=== PATIENT | male | born 1965 | race Caucasian/White ===

== ENCOUNTER 2022-12-09 10:35 | Outpatient (CLI) | payer OTHER, SELFPAY ==
[2022-12-09 13:19] LABS: Anion Gap 10 mmol/L (8-16); Blood Urea Nitrogen 18 mg/dL (9-20); Carbon Dioxide 29 mmol/L (22-30); Chloride 96 mmol/L (98-107); Estimated Glomerular Filt Rate > 60; Glucose 201 mg/dL (65-110); Potassium 4.6 mmol/L (3.4-5.0); Sodium 135 mmol/L (137-145)
[2022-12-09 17:13] LABS: Hemoglobin A1C 8.6 % (<5.7)
== END 2022-12-09 10:36 | disposition home or self-care (01) ==
LOC: ANHGOSHLAB 10:37
PROVIDERS: PCP Emergency Medicine; Visit Provider Nurse Practitioner
DX: R94.4 Abnormal results of kidney function studies (principal); E11.65 Type 2 diabetes mellitus with hyperglycemia
CPT/HCPCS: 36415; 80048; 83036

== ENCOUNTER 2023-03-14 08:48 | Day surgery (SDC) | payer OTHER, SELFPAY ==
[2022-12-01 15:07] VITALS: BMI 26.7
[2023-02-28 14:41] VITALS: BMI 25.0
--- NOTE | 2023-03-11 14:06 | WPDANESEPPF ---
Anes - Initial Pre Proc Eval Procedure: Operation Date: 03/14/23 11:30 Proposed Procedures p Screening Colonoscopy - Jose Miguel Carl MD Date/Time: 03/11/23 14:06 Surgeon: Jose Miguel Carl MD Pre Op Diagnosis: Neoplasm Screening Patient Data Age: 57 Gender: M Height: 1.91 m Weight: 91 kg Allergies Allergy/AdvReac Type Severity Reaction Status Date / Time Penicillins Allergy Unknown Hives Verified 03/14/23 10:07 Home Medications Medication Instructions Recorded Confirmed Type flash glucose scanning reader #1 ea 08/08/20 10/04/22 Rx (FreeStyle Sarah 14 Day Clarence) E2/E3/Progesterone/Testosterone 1 applic topical DAILY #1 tube 03/22/22 03/14/23 History 1.25/60MG/1MG/GM Topical Cream 1 tube cream cinnamon bark 500 mg capsule 500 mg PO DAILY 03/22/22 03/14/23 History (Cinnamon) milk thistle 150 mg capsule 150 mg PO DAILY 03/22/22 03/14/23 History flash glucose scanning reader #1 ea 10/14/22 Rx (FreeStyle Sarah 2 Clarence) flash glucose sensor (FreeStyle #1 ea 10/14/22 Rx Sarah 2 Sensor kit) ipratropium bromide 21 mcg (0.03 2 spray intranasal TID #30 mL 11/19/22 03/14/23 Rx %) nasal spray fluticasone propionate 50 1 spray intranasal DAILY 02/28/23 03/14/23 History mcg/actuation nasal spray,suspension (Flonase Allergy Relief) lisinopril 20 1 tablet PO DAILY 02/28/23 03/14/23 History mg-hydrochlorothiazide 12.5 mg tablet metformin 500 mg tablet,extended 1,000 mg PO BID #180 tabs 03/14/23 Rx release 24 hr Patient hx anesthesia problems: none Family hx anesthesia problems: none Results Review: All pre-operative results and documents have been reviewed as part of the pre-operative evaluation. [facility] Past Medical History Medical History (Updated 03/14/23 @ 11:02 by David Montoya DO) Hypertension associated with diabetes Type 2 diabetes mellitus with hyperglycemia, without long-term current use of insulin Family History Family History Father Hypertension Family history of congestive heart failure Social History Social History (Updated 03/14/23 @ 11:03 by David Montoya DO) Smoking status: Never smoker Alcohol intake: current Drinks per week: 5 Alcohol use details: 5 drinks 5 days/week Substance use: never Substance use type: does not use Lack of Transportation: No Lack of Food: Never True Current Housing: I Have Housing Concerned About Future Housing: No Difficulty Paying Gas/Electric Bills: No Difficulty Paying for Meds: No Currently Unemployed: No Education: Master's Degree or Higher Difficulty w/ Childcare or Family Care: No Living arrangements: with family Spiritual care concerns: No Anes - Eval Final PreProcedure Day of Procedure 03/11/23 14:06 Patient weight: overweight Heart: regular rate and rhythm Lungs: clear to auscultation Airway: Mallampati scale class II Neurological: alert and oriented Last oral intake: >/= 8 hours ASA classification: III Emergent: no Anesthetic plan: proceed Anesthesia type and monitoring: general GIVS and standard monitoring Results Review: All pre-operative results and documents have been reviewed as part of the pre-operative evaluation. Informed Consent: The patient's anesthetic plan and its attendant risks and benefits were discussed with the patient/family/POA. Questions were solicited and answers provided to the satisfaction of the patient/family/POA.
[2023-03-14 10:13] VITALS: BP 173/99; PULSE 82; RESP 16; TEMP 36.6; O2SAT 16; BMI 25.9
[2023-03-14 10:25] LABS: Glucose Point of Care 170 mg/dl (65-105)
[2023-03-14] MEDS: LACTATED RINGERS 1,000 ML 150 ML IV CONT (10:27)
--- NOTE | 2023-03-14 10:33 | PM.HPGS ---
History of Present Illness History of Present Illness Consent: Risks, benefits, and alternatives have been discussed and questions answered. Patient agrees to proceed with procedure. Chief complaint: Neoplasm Screening Narrative: Nelson Del Rio is a 57 year old male Presents for screening colonoscopy. Patient's current weight appetite and bowel movements are normal. Patient denies abdominal pain. He has had no bleeding. Family history noncontributory. Review of Systems Review of Systems: Review of systems noncontributory. [facility] Past Medical History Medical History (Updated 03/11/23 @ 14:07 by David Montoya DO) Hypertension associated with diabetes Sleep apnea in adult Supraventricular tachycardia Type 2 diabetes mellitus with hyperglycemia, without long-term current use of insulin Family History Family History Father Hypertension Family history of congestive heart failure Social History Social History (Updated 10/04/22 @ 10:32 by Rachelle Phelan MA) Smoking status: Never smoker Alcohol intake: current Drinks per week: 5 Substance use: never Substance use type: does not use Lack of Transportation: No Lack of Food: Never True Current Housing: I Have Housing Concerned About Future Housing: No Difficulty Paying Gas/Electric Bills: No Difficulty Paying for Meds: No Currently Unemployed: No Education: Master's Degree or Higher Difficulty w/ Childcare or Family Care: No Living arrangements: with family Spiritual care concerns: No Meds Home Medications and Allergies Home Medications Medication Instructions Recorded Confirmed Type flash glucose scanning reader #1 ea 08/08/20 10/04/22 Rx (FreeStyle Sarah 14 Day Baldwin) E2/E3/Progesterone/Testosterone 1 applic topical DAILY #1 tube 03/22/22 03/14/23 History 1.25/60MG/1MG/GM Topical Cream 1 tube cream cinnamon bark 500 mg capsule 500 mg PO DAILY 03/22/22 03/14/23 History (Cinnamon) milk thistle 150 mg capsule 150 mg PO DAILY 03/22/22 03/14/23 History flash glucose scanning reader #1 ea 10/14/22 Rx (FreeStyle Sarah 2 Baldwin) flash glucose sensor (FreeStyle #1 ea 10/14/22 Rx Sarah 2 Sensor kit) ipratropium bromide 21 mcg (0.03 2 spray intranasal TID #30 mL 11/19/22 03/14/23 Rx %) nasal spray metformin 500 mg tablet,extended 1,000 mg PO BID #180 tabs 02/07/23 03/14/23 Rx release 24 hr fluticasone propionate 50 1 spray intranasal DAILY 02/28/23 03/14/23 History mcg/actuation nasal spray,suspension (Flonase Allergy Relief) lisinopril 20 1 tablet PO DAILY 02/28/23 03/14/23 History mg-hydrochlorothiazide 12.5 mg tablet Allergies Allergy/AdvReac Type Severity Reaction Status Date / Time Penicillins Allergy Unknown Hives Verified 03/14/23 10:07 Vital Signs Vital Signs - 24 hr 03/14/23 10:13 Temperature 97.8 F Pulse Rate 82 Respiratory Rate 16 Blood Pressure 173/99 H Pulse Oximetry 16 L Oxygen Delivery Room Air Exam Narrative: Physical exam reveals patient to be alert. Vital signs stable. HEENT exam is unremarkable. Patient is anicteric. Lungs are clear to auscultation and percussion heart is without murmur or extra sounds. Abdomen bowel sounds are present soft nontender with no organomegaly. Digital external rectal exam normal. Assessment and Plan Assessment and plan (1) Screening for colon cancer: Code(s): Z12.11 - Encounter for screening for malignant neoplasm of colon Status: Acute Assessment and Plan: Patient presents for screening colonoscopy. He appears to be at average risk for colon polyps. Further recommendations may be given after endoscopy.
[2023-03-14 11:24] VITALS: BP 139/82; PULSE 80; RESP 20; O2SAT 99
[2023-03-14 11:34] VITALS: BP 125/90; PULSE 85; RESP 18; O2SAT 99
[2023-03-14 11:44] VITALS: BP 119/93; PULSE 85; RESP 20; O2SAT 100
--- NOTE | 2023-03-14 11:58 | SUR.PHASEII ---
150; PT DRESSED AND WAITING FOR RIDE
--- NOTE | 2023-03-14 13:35 | WPDANESPN ---
Anes - Prog Note Post-Op Date/Time: 03/14/23 13:35 Cardiovascular status: normal Respiratory status: normal Airway patency: baseline Mental status: baseline Post-Op hydration status: normal Vital Signs: Last Vital Signs Temp 36.6 C 03/14/23 10:13 Pulse 85 03/14/23 11:44 Resp 20 03/14/23 11:44 BP 119/93 H 03/14/23 11:44 Pulse Ox 100 03/14/23 11:44 O2 Del Method Room Air 03/14/23 11:44 Pain Score (VAS): 0 I/O: Intake & Output 03/13/23 03/14/23 03/14/23 23:59 07:59 15:59 Intake Total 500 Balance 500 03/14/23 10:23 POC Capillary Glucose 170 H Post-procedural complaints: none Patient Feedback: Patient satisfied with anesthetic care. Other Findings: Patient vital signs back to baseline. Patient denies nausea and vomiting. Patient's pain under control. Patient OK for discharge.
== END 2023-03-14 12:00 | disposition home or self-care (01) ==
PROVIDERS: PCP Emergency Medicine; Visit Provider Internal Medicine Gastroenterology
PROC: 0DJD8ZZ Inspection of Lower Intestinal Tract, Via Natural or Artificial Opening Endoscopic (ICD-10-PCS; CPT 45378; principal; 2023-03-14 11:30)
DX: Z12.11 Encounter for screening for malignant neoplasm of colon (principal); K57.30 Diverticulosis of large intestine without perforation or abscess without bleeding; K64.8 Other hemorrhoids
CPT/HCPCS: 45378

== ENCOUNTER 2023-03-29 08:55 | Outpatient (CLI) | payer OTHER, SELFPAY ==
[2023-03-29 18:45] LABS: Alanine Aminotransferase 76 U/L (6-50); Albumin Level 4.7 g/dL (3.5-5.1); Alkaline Phosphatase 69 U/L (38-126); Anion Gap 11 mmol/L (8-16); Aspartate Amino Transferase 69 U/L (17-59); Bilirubin,Total 0.8 mg/dL (0.2-1.3); Blood Urea Nitrogen 17 mg/dL (9-20); Carbon Dioxide 29 mmol/L (22-30); Chloride 93 mmol/L (98-107); Cholesterol 183 mg/dL (0-200); Estimated Glomerular Filt Rate > 60; Glucose 183 mg/dL (65-110); HDL Direct 47 mg/dL; Potassium 4.5 mmol/L (3.4-5.0); Sodium 133 mmol/L (137-145); Triglycerides 119 mg/dL (<150)
[2023-03-29 18:48] LABS: Creatinine Urine 77.6 mg/dL
[2023-03-29 18:52] LABS: MALB Creatinine Ratio 7.9 mg/g (0-30); Microalbumin Urine Random 6.1 mg/L (0-16.7)
[2023-03-29 18:56] LABS: LDL Cholesterol Direct 103 mg/dL
[2023-03-29 20:26] LABS: Hemoglobin A1C 7.5 % (<5.7)
[2023-04-02 11:48] LABS: Testosterone Total 1279 ng/dL (250-1100)
== END 2023-03-29 08:56 | disposition home or self-care (01) ==
LOC: ANHGOSHLAB 08:56
PROVIDERS: PCP Emergency Medicine; Visit Provider Emergency Medicine
DX: E11.65 Type 2 diabetes mellitus with hyperglycemia (principal); Z12.5 Encounter for screening for malignant neoplasm of prostate; R53.83 Other fatigue; E11.42 Type 2 diabetes mellitus with diabetic polyneuropathy
CPT/HCPCS: 36415; 80053; 80061; 82043; 83036; 84153; 84403; G0103

== ENCOUNTER 2023-09-26 08:33 | Outpatient (CLI) | payer OTHER, SELFPAY ==
[2023-09-26 14:36] LABS: Alanine Aminotransferase 54 U/L (6-50); Alkaline Phosphatase 77 U/L (38-126); Anion Gap 10 mmol/L (4-12); Aspartate Amino Transferase 44 U/L (17-59); Blood Urea Nitrogen 21 mg/dL (9-20); Calcium 10.2 mg/dL (8.4-10.2); Carbon Dioxide 27 mmol/L (22-30); Chloride 99 mmol/L (98-107); Estimated Glomerular Filt Rate 57; Glucose 120 mg/dL (65-110); Potassium 4.4 mmol/L (3.4-5.0); Sodium 136 mmol/L (137-145)
== END 2023-09-26 08:34 | disposition home or self-care (01) ==
LOC: ANHGOSHLAB 08:35
PROVIDERS: PCP Emergency Medicine; Visit Provider Emergency Medicine
DX: E11.42 Type 2 diabetes mellitus with diabetic polyneuropathy (principal)
CPT/HCPCS: 36415; 80053; 83036

== ENCOUNTER 2024-02-22 09:50 | Emergency (ER) | payer OTHER, SELFPAY ==
--- NOTE | 2024-02-22 09:54 | ED.GENADULT ---
HPI - General Adult General Chief complaint: Epistaxis Stated complaint: nose bleed Time Seen by Provider: 02/22/24 10:10 Source: patient, RN notes reviewed and old records reviewed Mode of arrival: ambulatory Limitations: no limitations History of Present Illness HPI narrative: 58-year-old male presents to [facility] with concerns for a bloody nose that started approximately 830 this morning Patient has been holding pressure, has a tampon in his nose. Denies any dizziness. States he has had nose bleeds in the past but never this bad. Reports he has had a history of nasal septal surgery Treatments prior to arrival: other (Pressure) Related Data Home Medications Medication Instructions Recorded Confirmed E2/E3/Progesterone/Testosterone 1 applic topical DAILY #1 tube 03/22/22 07/07/23 1.25/60MG/1MG/GM Topical Cream 1 tube cream cinnamon bark 500 mg capsule 500 mg PO DAILY 03/22/22 02/22/24 (Cinnamon) milk thistle 150 mg capsule 150 mg PO DAILY 03/22/22 07/07/23 fluticasone propionate 50 1 spray intranasal DAILY 02/28/23 07/07/23 mcg/actuation nasal spray,suspension (Flonase Allergy Relief) Allergies Allergy/AdvReac Type Severity Reaction Status Date / Time Penicillins Allergy Unknown Hives Verified 02/22/24 09:54 Review of Systems Review of Systems: All systems reviewed & are unremarkable except as noted in HPI and below Constitutional: Constitutional: Reports no additional constitutional complaints Eyes: Eyes: Reports no additional eye complaints ENT: Reports as per HPI and Reports epistaxis Cardiovascular: Cardiovascular: Reports no additional cardiovascular complaints, Denies chest pain and Denies dyspnea Respiratory: Respiratory: Reports no additional respiratory complaints, Denies chest congestion, Denies cough and Denies dyspnea Gastrointestinal: Gastrointestinal: Reports no additional gastrointestinal complaints, Denies abdominal pain, Denies nausea and Denies vomiting Musculoskeletal: Musculoskeletal: Reports no additional musculoskeletal complaints Integumentary/Breasts: Skin/Breast: Reports system reviewed and no additional complaints, except as docu Neurologic: Reports system reviewed and no additional complaints, except as documented Psychiatric: Psychiatric: Reports no additional psychiatric complaints Allergic/Immunologic: Allergic/Immunologic: Reports no additional allergic/immunologic complaints PMFSH Past Medical History Medical History (Updated 02/22/24 @ 15:45 by Vicky Bradley APRN) GERD (gastroesophageal reflux disease) Hypertension associated with diabetes Type 2 diabetes mellitus with hyperglycemia, without long-term current use of insulin Family History Family History Father Hypertension Family history of congestive heart failure Social History Social History Smoking status: Never smoker Alcohol intake: current Drinks per week: 5 Alcohol use details: 5 drinks 5 days/week Substance use: never Substance use type: does not use Lack of Transportation: No Lack of Food: Never True Current Housing: I Have Housing Concerned About Future Housing: No Difficulty Paying Gas/Electric Bills: No Difficulty Paying for Meds: No Currently Unemployed: No Education: Master's Degree or Higher Difficulty w/ Childcare or Family Care: No Living arrangements: with family Spiritual care concerns: No Comments At the time of my signature, I reviewed and agree with the nursing past medical, surgical, social, and family history. There is no relevant family history pertinent to the patient complaint. Exam Const: General: cooperative, healthy appearing, comfortable, no acute distress, well developed, alert and well nourished Nutritional Appearance: well nourished Orientation/consciousness: patient oriented x3 Limitations: no limita
[2024-02-22 10:01] VITALS: BP 164/94; PULSE 120; RESP 16; TEMP 36.5; O2SAT 100
[2024-02-22 10:07] VITALS: BP 164/94; PULSE 120; RESP 16; TEMP 36.5; O2SAT 100
== END 2024-02-22 10:20 | disposition short-term general hospital (02) ==
LOC: EXPGOSH 09:53
PROVIDERS: Emergency Provider Nurse Practitioner
DX: R04.0 Epistaxis (principal); E11.9 Type 2 diabetes mellitus without complications; I10 Essential (primary) hypertension; K21.9 Gastro-esophageal reflux disease without esophagitis
CPT/HCPCS: 99212; G0463

== ENCOUNTER 2024-02-22 10:41 | Emergency (ER) | payer OTHER, SELFPAY ==
[2024-02-22 10:44] VITALS: BP 183/105; PULSE 113; RESP 18; TEMP 36.2; O2SAT 98
[2024-02-22 10:47] VITALS: BP 159/110; PULSE 104; RESP 18; TEMP 36.2; O2SAT 99
--- NOTE | 2024-02-22 12:19 | ED.EPISTAXIS ---
HPI - Epistaxis General Chief complaint: Epistaxis Stated complaint: nose bleed, sent from Time Seen by Provider: 02/22/24 11:12 History of Present Illness HPI Narrative: patient is a 58-year-old male who presents ER with epistaxis. Left near. Was seen at urgent care and they cannot control it so they sent him here. He has a tampon in the left nostril. He is not on any blood thinners. He denies any trauma. He was in the shower trying to blow his nose when he began bleeding. No fevers or chills or sweats. Related Data Home Medications Medication Instructions Recorded Confirmed E2/E3/Progesterone/Testosterone 1 applic topical DAILY #1 tube 03/22/22 07/07/23 1.25/60MG/1MG/GM Topical Cream 1 tube cream cinnamon bark 500 mg capsule 500 mg PO DAILY 03/22/22 02/22/24 (Cinnamon) milk thistle 150 mg capsule 150 mg PO DAILY 03/22/22 07/07/23 fluticasone propionate 50 1 spray intranasal DAILY 02/28/23 07/07/23 mcg/actuation nasal spray,suspension (Flonase Allergy Relief) Allergies Allergy/AdvReac Type Severity Reaction Status Date / Time Penicillins Allergy Unknown Hives Verified 02/22/24 09:54 Review of Systems Constitutional: Constitutional: Reports no additional constitutional complaints ENT: Reports epistaxis, Reports nasal congestion and Denies sore throat Cardiovascular: Cardiovascular: Reports no additional cardiovascular complaints Respiratory: Respiratory: Reports no additional respiratory complaints [facility] Past Medical History Medical History (Updated 02/22/24 @ 12:20 by Hasmukh Wall MD) GERD (gastroesophageal reflux disease) Hypertension associated with diabetes Type 2 diabetes mellitus with hyperglycemia, without long-term current use of insulin Family History Family History Father Hypertension Family history of congestive heart failure Social History Social History Smoking status: Never smoker Alcohol intake: current Drinks per week: 5 Alcohol use details: 5 drinks 5 days/week Substance use: never Substance use type: does not use Lack of Transportation: No Lack of Food: Never True Current Housing: I Have Housing Concerned About Future Housing: No Difficulty Paying Gas/Electric Bills: No Difficulty Paying for Meds: No Currently Unemployed: No Education: Master's Degree or Higher Difficulty w/ Childcare or Family Care: No Living arrangements: with family Spiritual care concerns: No Exam Narrative: GENERAL: Well-appearing, well-nourished, and in no acute distress. HEAD: Normocephalic, atraumatic. EYES: PERRL and EOMI. ENT: Mucous membranes moist. Small polyp left nasal septum without obvious source of bleed identified. Clot evacuated with irrigation with saline NECK: Supple. CHEST: Clear to auscultation. No respiratory distress. HEART: Regular rate and rhythm. Normal peripheral pulses. EXTREMITIES: Normal range of motion. No edema. NEURO: Alert and oriented x3. PSYCH: Normal mood and affect. Course Course Emergency Course: clot evacuated. Afrin applied. No additional bleeding. Conservative management for home. Follow-up with PCP. Vital Signs Vital signs: Vital Signs Temperature 97.2 F L 02/22/24 10:44 Pulse Rate 113 H 02/22/24 10:44 Respiratory Rate 18 02/22/24 10:44 Blood Pressure 183/105 H 02/22/24 10:44 Pulse Oximetry 98 02/22/24 10:44 Oxygen Delivery Room Air 02/22/24 10:44 Temperature 97.1 F L 02/22/24 10:47 Pulse Rate 104 H 02/22/24 10:47 Respiratory Rate 18 02/22/24 10:47 Blood Pressure 159/110 H 02/22/24 10:47 Pulse Oximetry 99 02/22/24 10:47 Oxygen Delivery Room Air 02/22/24 10:44 Discharge Plan Discharge Clinical Impression: Epistaxis Patient Disposition: Home, Self-Care Condition: Stable Instructions: Nosebleed (ED) Abhi
[2024-02-22] MEDS: OXYMETAZOLINE HCL 0.05% NAS 15 ML BTL (*BKC) 1 SPRAY NASAL (12:25)
[2024-02-22 12:30] VITALS: BP 168/93; PULSE 103; RESP 18; O2SAT 99
[2024-02-22 13:00] VITALS: BP 166/108; PULSE 84; RESP 18; TEMP 36.9; O2SAT 100
== END 2024-02-22 12:30 | disposition home or self-care (01) ==
PROVIDERS: Emergency Provider Emergency Medicine; PCP Emergency Medicine
DX: R04.0 Epistaxis (principal); E11.9 Type 2 diabetes mellitus without complications; I15.2 Hypertension secondary to endocrine disorders; K21.9 Gastro-esophageal reflux disease without esophagitis; Z79.85 Long-term (current) use of injectable non-insulin antidiabetic drugs; Z79.899 Other long term (current) drug therapy
CPT/HCPCS: 30901; 99282; A9270

== ENCOUNTER 2025-02-05 12:38 | Outpatient (CLI) | payer OTHER, SELFPAY ==
--- OUTSIDE RECORDS SUMMARY | 2025-02-05 12:44 | XMS_ITS | Clinical Summary ---
Author Organization [facility] Address [address] [place] [address] Care Team Providers Care Content Editor Name Role Phone Unavailable Primary Care Provider Unavailabl e Medications tirzepatide (Mounjaro) 7.5 mg/0.5 mL Pen Injector Inject 0.5 mL (7.5 mg) by subcutaneous injection every 7 days. 2 mL 2 11/13/2023 3:25 PM CDT 4 Active flash glucose sensor (FreeStyle Sarah 2 Sensor) Kit Use to check blood sugar. 6 Each 1 11/19/2023 5:49 PM CDT 4 Active tirzepatide (Mounjaro) 10 mg/0.5 mL Pen Injector Inject 10 mg by subcutaneous injection every 7 days. 2 mL 1 02/06/2024 3:34 PM CDT 4 Active lisinopril-hydr oCHLOROthiazide (ZESTORETIC) 20-12.5 mg tablet Take 1 Tablet by mouth daily. 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 2 mL 1 08/27/2024 8:55 AM CDT 5 Active tirzepatide (Mounjaro) 12.5 mg/0.5 mL Pen Injector Inject 0.5 mL (12.5 mg) by subcutaneous injection every 7 days. 2 mL 1 02/04/2025 9:03 AM CDT 5 Active Encounters Date Type Department Care Team Description 11/06/2024 External Device Data [facility] Provider, Abstract from Last 3 Months Social History Tobacco Use Types Packs/Day Years Used Date Smoking Tobacco: Never Assessed Sex and Gender Information Value Date Recorded Sex Assigned at Not on file Legal Sex Male 12:12 PM CDT Gender Identity Not on file Sexual Orientation Not on file Plan of Treatment Health Maintenance Due Date Last Done Comments DTAP/TDAP/TD VACCINES (1 - Tdap) 1985 HEPATITIS B VACCINES (1 of 3 - 19+ 3-dose series) 08/15 COLORECTAL SCREENING 09/09/2011 Colorectal Cancer Screening 09/09/2011 FIT-DNA Q 3 years 09/09/2011 FIT/FOBT Q 1 year 09/09/2011 Flex Sig/CT Colonography Q 5 years 09/09/2011 ZOSTER VACCINE (1 of 2) 2016 INFLUENZA VACCINE (#1) 2024 Insurance RX [employer] Member Subscriber Plan / Payer (Ef fective 2023-Present) Name:Nelson Del Rio Relation to Subscriber:Self Name:Nelson eDl Rio Subscriber ID:Not on file Payer ID:Not on file Type:RX Commercial Address: [place] [address]
== END 2025-02-05 12:39 | disposition home or self-care (01) ==
LOC: ANHGOSHLAB 12:39
PROVIDERS: PCP Internal Medicine; Visit Provider Internal Medicine
DX: Z76.89 Persons encountering health services in other specified circumstances (principal)
CPT/HCPCS: 36415